=== PATIENT | female | born 1990 | race Native Hawaiian/Other Pacific Islander ===

== ENCOUNTER → 2019-05-28 09:03 | Outpatient (CLI) | payer OTHER, SELFPAY ==
--- NOTE | 2019-05-28 09:05 | DI.US.S_ITS ---
PROCEDURE: US OB >= 14 WEEKS FETUS INDICATIONS: 20 WEEK ANATOMY OUTSIDE/PRIOR DATING DATA: Last menstrual period (LMP): 01/01/19. LMP-based estimated date of delivery (ARA): 10/08/19. First dating scan (date and location): 02/17/19. Estimated date of delivery (ARA) from first dating scan: 10/06/19. TECHNIQUE: Real-time scanning was performed of the fetus, with image documentation and biometric measurements. Endovaginal scanning: No COMPARISON: [facility], , OB >= 14 WEEKS FETUS, 05/21/2019, 12:56. FINDINGS: General: A single living intrauterine gestation is present. Presentation: Vertex. Placenta: Placental position is posterior, without previa. Amniotic fluid index: 13.3 cm, normal range is 5-24 cm. heart rate: 136 beats per minute. Maternal cervical canal: 4.4 cm long. Normal lower limit is 2.5 cm. biometrics: Biparietal diameter: 20 weeks 6 days Head circumference: 20 weeks 6 days Abdominal circumference: 21 weeks 3 days Femur length: 21 weeks Estimated gestational age from initial scan: 21 weeks 2 days Composite gestational age from present scan: 21 weeks 1 day Estimated weight and percentile: 480 g; 41st percentile Measurement variability for biometric dating: +/- 7 days from 14 weeks to 15 weeks 6 days gestation, +/- 10 days from 16 weeks to 21 weeks 6 days gestation, +/- 2 weeks from 22 weeks to 27 weeks 6 days gestation, +/- 3 weeks for 28 weeks gestation or later. weight reference: 4500 g or EFW >90/95% is considered macrosomia or large for gestational age. EFW <10% is small for gestational age. EFW 5% or less is considered intra-uterine growth restriction. Anatomic survey: Neuro: Ventricles are non-dilated at less than 10 mm. Cisterna magna is normal at 3-11 mm. Cerebellum is normal in size and morphology. Nuchal skin fold: Normal at less than 6 mm between 14-21 weeks gestational age. Face: Nose and lips, facial profile are normal. Spine: No evidence for spina bifida. Heart: 4-chambered heart is present, with normal ventricular outflow tracts. Diaphragm: Diaphragm is intact. Stomach: Left-sided stomach is present. Kidneys: Right renal pelvis measures 7.0 mm; otherwise normal kidneys. Normal is less than 5 mm in 2nd trimester, less than 7 mm in 3rd trimester. Cord: 3-vessel cord has orthotopic insertion. Bladder: Normal in size. Extremities: All 4 extremities identified. IMPRESSION: 1. Single living IUP redemonstrated and interval growth is normal. 2. Right renal pelvis is dilated to 7.0 mm; otherwise normal anatomic survey. Short term followup ultrasound recommended. Dictated by: Nikos GILBERT Interpreted: Darien Slater MD on 05/28/2019 at 12:03 Approved by: Darien Slater M.D. on 05/31/2019 at 13:35
== END ==
PROVIDERS: Visit Provider Specialist
DX: Z34.82 Encounter for supervision of other normal pregnancy, second trimester (principal); Z3A.21 21 weeks gestation of pregnancy
CPT/HCPCS: 76811

== ENCOUNTER 2019-07-08 10:17 | Observation (INO) | payer OTHER, SELFPAY ==
[2019-07-08] MEDS: NIFEdipine 10 MG CAPSULE PO (10:56)
[2019-07-08] MEDS: LACTATED RINGERS 1,000 ML 1000 ML IV (11:47)
--- NOTE | 2019-07-08 13:17 | PM.OBTRLD ---
Visit Information Visit Information Date of evaluation: 07/08/19 Primary OB Provider: Laurie Gomez Reason for Evaluation: Yes pre-term labor Evaluation Evaluation Baseline heart rate: 140 Variability: Moderate (11-25) monitor accelerations: Present monitor decelerations: Absent Uterine Contraction Intensity: Mild Category of Tracing: I Comments: Patient with uterine irritability on the monitor. Patient received IV fluids and 1 dose of p.o. nifedipine. Patient thought her symptoms for markedly improved prior to discharge although still some irritability on the monitor. Diagnosis, Plan/Disposition Final Diagnosis (1) Premature uterine contractions: Current Visit: Yes Status: Acute Plan/Disposition Plan: Patient is to push fluids, work on prevent in constipation, return if her symptoms increase rather than decreased. OB Disposition: home
== END 2019-07-08 13:10 | disposition home or self-care (01) ==
PROVIDERS: Admitting Provider Specialist; Visit Provider Specialist
DX: O60.02 Preterm labor without delivery, second trimester (principal); Z3A.27 27 weeks gestation of pregnancy
CPT/HCPCS: 59025; 59050; 96360; G0378; G0379

== ENCOUNTER 2019-07-12 14:03 | Observation (INO) | payer OTHER, SELFPAY ==
[2019-07-12 15:14] LABS: Appearance Urine UA CLEAR; Bilirubin Urine UA NEGATIVE (NEGATIVE); Color Urine UA YELLOW; Glucose Urine UA NEGATIVE (Negative); Ketones Urine UA NEGATIVE (NEGATIVE); Leukocyte Esterase Urine UA NEGATIVE (NEGATIVE); Nitrite Urine UA NEGATIVE (Negative); Occult Blood Urine UA NEGATIVE (Negative); Protein Urine UA NEGATIVE (Negative); Urobilinogen Urine UA 0.2 E.U./dL (0.2)
[2019-07-12] MEDS: LACTATED RINGERS 1,000 ML 1000 ML IV (15:31)
[2019-07-12] MEDS: NIFEdipine 10 MG CAPSULE PO ×4 (15:31→17:22)
== END 2019-07-12 17:39 | disposition home or self-care (01) ==
PROVIDERS: Obstetrics & Gynecology; Admitting Provider Specialist; Visit Provider Specialist
DX: O60.02 Preterm labor without delivery, second trimester (principal); Z3A.27 27 weeks gestation of pregnancy
CPT/HCPCS: 59025; 59050; 81003; 96360; G0378; G0379

== ENCOUNTER → 2019-07-13 08:49 | Outpatient (CLI) | payer OTHER, SELFPAY ==
[2019-07-13 09:46] LABS: Fetal Fibronectin Negative
== END ==
PROVIDERS: Visit Provider Obstetrics & Gynecology
DX: O47.9 False labor, unspecified (principal); Z3A.28 28 weeks gestation of pregnancy
CPT/HCPCS: 82731

== ENCOUNTER 2019-09-01 14:10 | Inpatient (IN) | payer OTHER, SELFPAY ==
--- NOTE | 2019-09-01 | DI.US.S_ITS ---
PROCEDURE: US OB LIMITED INDICATIONS: PAIN; POSSIBLE ABRUPTION OR SEPARATION OUTSIDE/PRIOR DATING DATA: Last menstrual period (LMP): 01/01/19. LMP-based estimated date of delivery (ARA): 10/08/19. First dating scan (date and location): 02/17/19. Estimated date of delivery (ARA) from first dating scan: 10/06/19. TECHNIQUE: Real-time scanning was performed of the fetus, with image documentation and biometric measurements. Endovaginal scanning: Not performed COMPARISON: None. FINDINGS: General: A single living intrauterine gestation is present. Presentation: Vertex. Placenta: Placental position is left/fundal, without previa. Amniotic fluid index: 12.6 cm, normal range is 5-24 cm. heart rate: 178 beats per minute. Estimated gestational age from initial scan: 39 weeks 3 days . Other: No evidence of placental abruption. Severe right maternal hydronephrosis IMPRESSION: Single living intrauterine fetus in vertex presentation. No evidence of placental abruption. Severe right maternal hydronephrosis. Dictated by: Darien Slater M.D. on 09/01/2019 at 19:52 Approved by: Darien Slater M.D. on 09/01/2019 at 19:54
[2019-09-01 14:30] VITALS: BP 110/74
[2019-09-01] MEDS: NIFEdipine 10 MG CAPSULE PO ×4 (15:47→16:46)
[2019-09-01] MEDS: LACTATED RINGERS 1,000 ML 1000 ML IV (16:00)
[2019-09-01] MEDS: TERBUTALINE 1 MG/ML VIAL 0.25 MG SUBCUT (17:38)
[2019-09-01] MEDS: MAGNESIUM SULFATE 20 GM/500 ML IV.SOLN IV (18:38)
[2019-09-01 19:16] LABS: Add Manual Diff / Slide Review NO; Basophils Absolute Auto 0 /uL (0-100); Basophils Percent Auto 0.1 % (0-2); Eosinophils Absolute Auto 0 /uL (0-450); Eosinophils Percent Auto 0.4 % (2-4); Hematocrit 30.6 % (36-46); Hemoglobin 10.1 g/dL (12.0-16.0); Lymphocytes Absolute Auto 1700 /uL (1100-4500); Lymphocytes Percent Auto 21.1 % (25-40); Mean Corpuscular HGB Conc 32.9 % (30-36); Mean Corpuscular Hemoglobin 25.3 PG (26-34); Mean Corpuscular Volume 76.9 fL (80-100); Monocytes Absolute Auto 600 /uL (0-900); Monocytes Percent Auto 7.3 % (3-14); Neutrophils Absolute Auto 5800 /uL (1500-7000); Neutrophils Percent Auto 71.1 % (50-75); Platelet Count 159 X10^3/uL (150-400); Red Blood Cell Count 3.98 X10^6/uL (4.0-5.2); Red Cell Distribution Width 14.9 % (11.6-14.8); White Blood Cell Count 8.1 X10^3/uL (4.5-11.0)
[2019-09-01] MEDS: ONDANSETRON 4 MG/2 ML INJ IV (19:25)
[2019-09-01 19:27] LABS: Carbon Dioxide 22 mmol/L (22-32); Chloride 107 mmol/L (98-107); HEMOLYSIS < 15 (0-50); Sodium 135 mmol/L (137-145)
[2019-09-01 20:08] LABS: Strep Grp B PCR NEG for Grp B Strep
[2019-09-01] MEDS: MAGNESIUM SULFATE 2 GM/50 ML PIGGYBACK IV (20:10)
[2019-09-01] MEDS: POTASSIUM CHLORIDE 40 MEQ in SODIUM CHLORIDE 0.9% 500 ML 130 ML IV (20:34)
[2019-09-01 21:51] LABS: Appearance Urine UA CLEAR; Bilirubin Urine UA NEGATIVE (NEGATIVE); Color Urine UA YELLOW; Glucose Urine UA NEGATIVE (Negative); Ketones Urine UA 1+ (NEGATIVE); Leukocyte Esterase Urine UA 3+ (NEGATIVE); Nitrite Urine UA NEGATIVE (Negative); Occult Blood Urine UA NEGATIVE (Negative); Protein Urine UA NEGATIVE (Negative); Urobilinogen Urine UA 0.2 E.U./dL (0.2)
[2019-09-01 21:53] LABS: pH Urine UA 6.5 (4.5-8.0)
[2019-09-01 22:03] LABS: RBC Urine 0-1/HPF (0-5/HPF); Squamous Epithelial Cell Urine 0-1 /HPF (0-5/HPF); WBC Urine 10-30/HPF (0-5/HPF)
[2019-09-01 22:04] LABS: Bacteria Urine Moderate (10-30); Culture Indicated Urine Specimen Cultured
--- NOTE | 2019-09-01 22:50 | PM.OBHP.1 ---
OB HPI Date/Time Date of admission: 09/01/19 Date Patient Seen: 09/01/19 Time Patient Seen: 22:54 History of Present Condition Chief complaint: LABOR : 3 Para: 1 Estimated Date of Delivery: 10/06/19 Estimated Gestational Age (weeks): 35 Narrative: Xiomara Reardon is a 29 year old female who came in in labor and has continued to have contractions despite all efforts to stop them Indications Operative indications ( section): previous uterine surgery History of Present care: good care, initiated at week # (6), number of visits (11) and pounds weight gain (24) Dating criteria: LMP confirmed by 1st trimester US Ultrasounds: normal mid trimester US Obstetrical complications: labor Medical complications: none Preadmission Labs Blood type: O (+) positive -: Antibody screen: negative, GBS status: negative, HBsAG: negative, HIV: negative and RPR/VDLR: negative -: Chlamydia screen: not detected and Gonorrhea screen: not detected -: Rubella: immune PAP: Normal Prior (ies) History: 2011 15 weeks gestation spontaneous delivery at home 08/15/2016 40 week gestation 7 lb 10 oz for failure to progress Evaluation Evaluation Baseline heart rate: 120 Variability: Average (6-10) monitor accelerations: Present monitor decelerations: Absent Contraction Frequency (minutes): 3 Uterine Contraction Intensity: Moderate Category of Tracing: I Cervical dilation (cm): 0 Cervical effacement (%): 50 station: -3 Laboratory results: Laboratory Tests 09/01/19 09/01/19 09/01/19 18:38 19:08 19:08 WBC 8.1 RBC 3.98 L Hgb 10.1 L Hct 30.6 L MCV 76.9 L MCH 25.3 L MCHC 32.9 RDW 14.9 H Plt Count 159 Neut % (Auto) 71.1 Lymph % (Auto) 21.1 L [place] % (Auto) 7.3 Eos % (Auto) 0.4 L Baso % (Auto) 0.1 Neut # (Auto) 5800 Lymph # (Auto) 1700 [place] # (Auto) 600 Eos # (Auto) 0 Baso # (Auto) 0 Sodium 135 L Potassium 3.0 L Chloride 107 Carbon Dioxide 22 Magnesium Cancelled Urine Color Urine Appearance Urine pH Ur Specific [place] Urine Protein Urine Glucose (UA) Urine Ketones Urine Occult Blood Urine Nitrate Urine Bilirubin Urine Urobilinogen Ur Leukocyte Esterase Urine RBC Urine WBC Ur Squamous Epith Cells Urine Bacteria Ur Culture Indicated? Group B Strep (PCR) Neg for grp b strep 09/01/19 21:30 WBC RBC Hgb Hct MCV MCH MCHC RDW Plt Count Neut % (Auto) Lymph % (Auto) [place] % (Auto) Eos % (Auto) Baso % (Auto) Neut # (Auto) Lymph # (Auto) [place] # (Auto) Eos # (Auto) Baso # (Auto) Sodium Potassium Chloride Carbon Dioxide Magnesium Urine Color Yellow Urine Appearance Clear Urine pH 6.5 Ur Specific [place] 1.010 Urine Protein Negative Urine Glucose (UA) Negative Urine Ketones 1+ H Urine Occult Blood Negative Urine Nitrate Negative Urine Bilirubin Negative Urine Urobilinogen 0.2 Ur Leukocyte Esterase 3+ H Urine RBC 0-1/hpf Urine WBC 10-30/hpf H Ur Squamous Epith Cells 0-1 /hpf Urine Bacteria Moderate (10-30) H Ur Culture Indicated? Specimen cultured Group B Strep (PCR) [facility] Medical History (Updated 09/01/19 @ 23:01 by Laurie Gomez MD) ADHD (Acute) Asthma (Acute) Surgical History (Updated 08/13/19 @ 08:46 by Laurie Gomez MD) H/O: (Acute) Meds Home Medications and Allergies Home Medications Medication Instructions Recorded Confirmed Type nifedipine 30 mg tablet,extended 30 mg PO BID #30 tab 07/13/19 Rx release Double Electric Breast Pump #1 ea 08/30/19 08/30/19 Rx Allergies Allergy/AdvReac Type Severity Reaction Status Date / Time hydromorphone [From Dilaudid] AdvReac Severe Does not Verified 05/19/19 15:47 want it makes me feel very weird and out of it amoxicillin AdvReac Mild Hives Verified 05/19/19 15:47 Penicillins AdvReac Mild Hives Verified 05/19/19 15:47 Review of Systems Review of Systems Narrative: Patient complains of increasing abdominal pain and contractions. The pain is constant with the contractions increasing her pain. No headaches or scotomata. No vaginal bleeding. Good movement. No leakage of fluid. ROS Unobtainable: All systems reviewed & are unremarkable except as noted in HPI and below Exam Vital Signs (past 8 hours): Blood pressure 111/77, pulse of 116 Narrative Exam Narrative: HEENT exam within normal limits. Lungs are clear to auscultation percussion. Heart is regular rate and rhythm no S3-S4 or murmurs. Abdomen is soft with mild to moderate palpable contractions. Patient with tenderness throughout the abdomen including over the scar. Extremities without edema and nontender. Objective Labs Result Diagrams: 09/01/19 19:08 09/01/19 19:08 Labs: Laboratory Results - last 24 hr 09/01/19 09/01/19 09/01/19 18:38 19:08 19:08 WBC 8.1 RBC 3.98 L Hgb 10.1 L Hct 30.6 L MCV 76.9 L MCH 25.3 L MCHC 32.9 RDW 14.9 H Plt Count 159 Neut % (Auto) 71.1 Lymph % (Auto) 21.1 L [place] % (Auto) 7.3 Eos % (Auto) 0.4 L Baso % (Auto) 0.1 Neut # (Auto) 5800 Lymph # (Auto) 1700 [place] # (Auto) 600 Eos # (Auto) 0 Baso # (Auto) 0 Sodium 135 L Potassium 3.0 L Chloride 107 Carbon Dioxide 22 Magnesium Cancelled Urine Color Urine Appearance Urine pH Ur Specific [place] Urine Protein Urine Glucose (UA) Urine Ketones Urine Occult Blood Urine Nitrate Urine Bilirubin Urine Urobilinogen Ur Leukocyte Esterase Urine RBC Urine WBC Ur Squamous Epith Cells Urine Bacteria Ur Culture Indicated? Group B Strep (PCR) Neg for grp b strep 09/01/19 21:30 WBC RBC Hgb Hct MCV MCH MCHC RDW Plt Count Neut % (Auto) Lymph % (Auto) [place] % (Auto) Eos % (Auto) Baso % (Auto) Neut # (Auto) Lymph # (Auto) [place] # (Auto) Eos # (Auto) Baso # (Auto) Sodium Potassium Chloride Carbon Dioxide Magnesium Urine Color Yellow Urine Appearance Clear Urine pH 6.5 Ur Specific [place] 1.010 Urine Protein Negative Urine Glucose (UA) Negative Urine Ketones 1+ H Urine Occult Blood Negative Urine Nitrate Negative Urine Bilirubin Negative Urine Urobilinogen 0.2 Ur Leukocyte Esterase 3+ H Urine RBC 0-1/hpf Urine WBC 10-30/hpf H Ur Squamous Epith Cells 0-1 /hpf Urine Bacteria Moderate (10-30) H Ur Culture Indicated? Specimen cultured Group B Strep (PCR) Assessment and Plan Assessment and Plan Assessment and Plan narrative: 35 week gestation with prior with increasing contractions and change in cervix despite nifedipine, terbutaline, and IV magnesium sulfate. Decision was made to proceed with repeat section. Consent form was reviewed with patient. Risks of damage to internal organs, infection, bleeding requiring blood transfusion discussed with patient. Consent form was signed. Patient did wish to have a tubal ligation and she understands that she will no longer be able have children. 1 of 400 risk of after tubal ligation likely ectopic were discussed with the patient. Signs and symptoms of ectopic discussed.
[2019-09-01 22:58] LABS: Magnesium 4.6 mg/dL (1.6-2.3)
[2019-09-01] MEDS: CEFAZOLIN 2 GM/100 ML FROZ.PIGGY IV (23:26)
[2019-09-01] MEDS: ACETAMINOPHEN IV 1,000 MG/100 ML VIAL 400 MG IV (23:30)
--- NOTE | 2019-09-01 23:34 | SUR.OPER ---
Supine on Padded OR bed, head on pillow, safety belt at thigh, arms secured on padded arm boards at <90 degrees abduction. Bump under right buttock. Legs uncrossed with pillow under knees, gel pad to heels, tape over blanket to lower legs.
--- NOTE | 2019-09-01 23:45 | SUR.OPER ---
fht 125 S/P PLACEMENT OF SPINAL, VIABLE BABY BOY BORN AT 2347
[2019-09-01] MEDS: CARBOPROST 250 MCG/ML AMPUL IM ×2 (23:49→23:57)
--- NOTE | 2019-09-02 | PATH_ITS ---
[facility] Accession Number: [id number] . 01 Material submitted: . fallopian tube - PORTIONS OF BILATERAL FALLOPIAN TUBES . 02 Diagnosis: Portions of Bilateral Fallopian Tubes, Bilateral Tubal Ligation: Two segments of fallopian tube. One portion of fimbriated fallopian tube. No evidence of neoplasm. MRV 09/06/2019 1314 Local . 02 Electronically signed: . River Nguyen MD, PhD, Pathologist NPI- [id number] . 01 Gross description: . Received in formalin, labeled portions bilateral fallopian tubes, are two nonfimbriated fallopian tube segments (segment #1: length-2.7 cm, diameter-0.5 cm; segment #2: length-2.5 cm, diameter-0.5 cm) and a possible fimbria (1.4 x 0.9 x 0.3 cm). The serosa is matta smooth and shiny and the lumens are mtata and unremarkable. Section code: (A1) segment #1, software support representative serial sections; (A2) segment #2, software support representative serial sections; (A3) possible fimbria, bivalved, entirely submitted. ([id number]) /MRV 09/03/2019 1410 Local . 02 Microscopic: . Complete cross-sections of fallopian tube are seen from each submitted tubular structure. . 02 Pathologist provided ICD-10: Z30.2 . 02 CPT . 764548 Performed at: 01 [facility] [address] [place] [id number] MD Vazquez East MD Phone: [phone] Performed at: 02 [facility] [address] [place], [place] [id number] MD Jailyn Huddleston MD Phone: [phone]
[2019-09-02 00:27] VITALS: BP 101/67; PULSE 74; RESP 19; TEMP 36.7; O2SAT 99
[2019-09-02 00:31] VITALS: BP 105/78; PULSE 70; RESP 12; O2SAT 99
[2019-09-02 00:36] VITALS: BP 109/79; PULSE 75; RESP 11; O2SAT 99
--- NOTE | 2019-09-02 00:40 | PM.OP.1 ---
Operative Date/Time/Diagnoses Date of procedure: 09/02/19 Time of procedure: 00:40 Pre-op diagnosis: 35 week gestation with prior section in active labor and undesired fertility Post-op diagnosis: same Procedure & Clinicians Procedure: Repeat low-transverse section with bilateral tubal ligation Same procedure as scheduled: Yes Indications: 35 week gestation with prior section in active labor and undesired fertility Surgeon: Laurie Gomez Director [employer]: Kelli Last Click Yes if Unassisted: No Anesthesia Type: Spinal Operative Notes Findings: Normal tubes, ovaries, and uterus. Viable male . Closure Type: primary Specimen(s): other (Bilateral segments of fallopian tubes) Applied: catheter Estimated Blood Loss (mL): 500 Blood products transfused: none Procedure in detail: The patient was brought to the operating room where she underwent a spinal for anesthesia. She was placed in a supine position with a left lateral tilt. A Yuan catheter was placed. Pulsatile stockings were placed and functional throughout the case. 2 g of Ancef were given IV prior to the incision. Warming was in place. The patient was prepped and draped in usual sterile fashion. A low transverse incision was made with a scalpel and the incision was carried down to the fascial layer which was incised transversely with scissors. The midline attachments are superiorly and inferiorly. Some bleeding was controlled Bovie. The rectus muscles were in the midline and the peritoneal incision was made with no damage to internal structures. The peritoneum was incised and superiorly and inferiorly. Bladder blade was placed and a bladder flap was developed and the bladder held away from the lower uterine segment. An incision was made in the uterus with the scalpel and the incision was extended with stretching. The head was elevated out of the abdomen with assistance from a vacuum and with fundal pressure the baby was delivered. The infant was bulb suctioned for clear fluid and handed off to the warmer. Cord blood was collected. The placenta delivered spontaneously with traction. The uterus was cleaned with clean laps. Due to the bleeding the patient was given IV Pitocin, IM Methergine, and intrauterine muscle injection of Hemabate. The uterine incision was closed in 2 layers of 0 chromic suture the first a running locking layer the second an imbricating layer. The bladder peritoneum was repaired with 2-0 Polysorb suture. The gutters were cleaned of any remaining fluid. The right fallopian tube was grasped with the Jennifer and a segment of the tube tied off x2 with 0 plain suture. The intervening section was removed. Same procedure was performed on the opposite side. Adequate hemostasis was noted. The perineum was closed with 2-0 Polysorb suture. The fascia layer was closed with 0 Polysorb suture with 2 stitches. The incision was irrigated and adequate hemostasis noted. The incision was closed with interrupted 3-0 Polysorb sutures and then a subcuticular stitch of 4-0 Polysorb suture. Steri-Strips were placed. The uterus was massaged to remove any clots. The patient went to recovery room in good condition. Counts of instruments and sponges were correct. Complications: none Post-operative Condition: stable Disposition: other ( Center) Plan for aftercare: Routine post section
[2019-09-02 00:42] VITALS: BP 114/78; PULSE 72; RESP 11; O2SAT 99
[2019-09-02 00:57] VITALS: BP 102/77; PULSE 74; RESP 10; TEMP 36.6; O2SAT 100
--- NOTE | 2019-09-02 01:59 | SUR.PHASEI ---
Late entry: stable pacu stay, report given to Marianne when she arrived to unit, pt left in stable condition.
[2019-09-02] MEDS: OXYCODONE/ACETAMINOPHEN 5/325 TABLET 1 TAB PO ×3 (03:29→13:16)
[2019-09-02] MEDS: KETOROLAC 30 MG/ML VIAL IV ×2 (07:14→13:17)
[2019-09-02 11:25] LABS: Hematocrit 26.5 % (36-46); Hemoglobin 8.9 g/dL (12.0-16.0)
--- NOTE | 2019-09-02 12:35 | P.DS_ITS ---
Discharge Providers Provider Date of admission: 09/01/19 14:10 Discharge Date: 09/02/19 Consults: 09/02/19 00:33 Consult to Senior Sales Administrator Routine Comment: Discharge provider: Laurie Gomez MD Summary Hospital Course Date Patient Seen: 09/02/19 Time Patient Seen: 12:36 Procedures: IV tocolytics, repeat low-transverse section with bilateral tubal ligation Hospital Course: Patient arrived at the hospital at 35 weeks in labor. Attempts to stop labor were unsuccessful and decision was made to proceed with repeat low-transverse section. Patient requested tubal ligation. The infant had respiratory distress after so was transported to [facility] in [place] and is apparently stable. Mother is ambulatory. Is urinating post removal of the Yuan catheter. Peripartum Data Infant Delivery Method: Section complications: none 1: Gender: Male Disposition of : NICU Discharge Diagnosis (1) H/O: : Status: Acute (2) Delivery by section: Status: Acute (3) Acute blood loss anemia: Status: Acute (4) 35 weeks gestation of : Status: Acute Status at Discharge Cognitive/behavioral status at discharge: oriented Functional status at discharge: independent ambulation Overall status at discharge: patient is progressing back to baseline Time Spent with Patient Time attestation: Total time spent providing and/or coordinating discharge services: Time spent: Less than 30 minutes Objective Labs Result Diagrams: 09/02/19 11:11 09/01/19 19:08 Labs: Laboratory Results - last 24 hr 09/01/19 09/01/19 09/01/19 18:38 19:08 19:08 WBC 8.1 RBC 3.98 L Hgb 10.1 L Hct 30.6 L MCV 76.9 L MCH 25.3 L MCHC 32.9 RDW 14.9 H Plt Count 159 Neut % (Auto) 71.1 Lymph % (Auto) 21.1 L [place] % (Auto) 7.3 Eos % (Auto) 0.4 L Baso % (Auto) 0.1 Neut # (Auto) 5800 Lymph # (Auto) 1700 [place] # (Auto) 600 Eos # (Auto) 0 Baso # (Auto) 0 Sodium 135 L Potassium 3.0 L Chloride 107 Carbon Dioxide 22 Magnesium Cancelled Urine Color Urine Appearance Urine pH Ur Specific [place] Urine Protein Urine Glucose (UA) Urine Ketones Urine Occult Blood Urine Nitrate Urine Bilirubin Urine Urobilinogen Ur Leukocyte Esterase Urine RBC Urine WBC Ur Squamous Epith Cells Urine Bacteria Ur Culture Indicated? Group B Strep (PCR) Neg for grp b strep Blood Type Antibody Screen 09/01/19 09/01/19 09/01/19 21:30 22:25 22:25 WBC RBC Hgb Hct MCV MCH MCHC RDW Plt Count Neut % (Auto) Lymph % (Auto) [place] % (Auto) Eos % (Auto) Baso % (Auto) Neut # (Auto) Lymph # (Auto) [place] # (Auto) Eos # (Auto) Baso # (Auto) Sodium Potassium Chloride Carbon Dioxide Magnesium 4.6 H Urine Color Yellow Urine Appearance Clear Urine pH 6.5 Ur Specific [place] 1.010 Urine Protein Negative Urine Glucose (UA) Negative Urine Ketones 1+ H Urine Occult Blood Negative Urine Nitrate Negative Urine Bilirubin Negative Urine Urobilinogen 0.2 Ur Leukocyte Esterase 3+ H Urine RBC 0-1/hpf Urine WBC 10-30/hpf H Ur Squamous Epith Cells 0-1 /hpf Urine Bacteria Moderate (10-30) H Ur Culture Indicated? Specimen cultured Group B Strep (PCR) Blood Type O Positive Antibody Screen Negative 09/02/19 11:11 WBC RBC Hgb 8.9 L Hct 26.5 L MCV MCH MCHC RDW Plt Count Neut % (Auto) Lymph % (Auto) [place] % (Auto) Eos % (Auto) Baso % (Auto) Neut # (Auto) Lymph # (Auto) [place] # (Auto) Eos # (Auto) Baso # (Auto) Sodium Potassium Chloride Carbon Dioxide Magnesium Urine Color Urine Appearance Urine pH Ur Specific [place] Urine Protein Urine Glucose (UA) Urine Ketones Urine Occult Blood Urine Nitrate Urine Bilirubin Urine Urobilinogen Ur Leukocyte Esterase Urine RBC Urine WBC Ur Squamous Epith Cells Urine Bacteria Ur Culture Indicated? Group B Strep (PCR) Blood Type Antibody Screen Exam Vital Signs (past 8 hours): Blood pressure 100/61, pulse 64, temperature 37.1? Oxygen Delivery Method Room Air Narrative Exam Narrative: Patient's abdomen is soft, nontender. Uterus is firm, U -1, appropriately tender. Dressing is dry. Mild lochia. Extremities without edema and nontender. Patient's blood type is O-positive she is rubella immune and received the Tdap in the 3rd trimester Discharge Plan Discharge Plan Patient Disposition: Home Discharge Med Rec/Prescriptions Prescriptions: New oxycodone-acetaminophen 5-325 mg Tablet 1 tab PO Q4HR PRN (Reason: Pain, Moderate (4-6)) Qty: 30 RF: 0 docusate sodium 250 mg Capsule 250 mg PO DAILY Qty: 20 RF: 0 ibuprofen 600 mg tablet 600 mg PO Q6H PRN (Reason: pain) Qty: 30 RF: 0 ferrous gluconate 324 mg (38 mg iron) tablet 324 mg PO BID Qty: 60 RF: 0 Continued (DME) Double Electric Breast Pump Qty: 1 RF: 0 Discontinued nifedipine 30 mg tablet extended release 30 mg PO BID Qty: 30 RF: 4 Follow up/Referrals: Laurie Gomez MD [Physician] - 1 Week (1 week incision check, 4 weeks exam if you are down at [facility] go to labor and delivery too see if someone can remove the dressing) Provider Discharge Instructions Diet: Regular Activity: nothing in vagina for 4 weeks, do not lift over 20 pounds for 6 weeks Skin/Wound/Dressing Care Report to your healthcare provider any signs of infection, such as:: chills, fever, increased pain and unusual redness Dressing: leave dressing in place until your 1 week check Visit Report/Discharge Packet Stand Alone Forms: Discharge: Care
[2019-09-02 13:22] VITALS: BP 104/61; PULSE 63; RESP 12; TEMP 36.5
== END 2019-09-02 15:00 | disposition home or self-care (01) | DRG 784 ==
PROVIDERS: Admitting Provider Specialist; Visit Provider Specialist
PROC: 10D00Z1 Extraction of Products of Conception, Low, Open Approach (ICD-10-PCS; CPT 59514; principal; 2019-09-01 11:00)
DX: O60.14X0 Preterm labor third trimester with preterm delivery third trimester, not applicable or unspecified (principal); D62 Acute posthemorrhagic anemia; O34.219 Maternal care for unspecified type scar from previous cesarean delivery; Z3A.35 35 weeks gestation of pregnancy; Z37.0 Single live birth; Z30.2 Encounter for sterilization
CPT/HCPCS: 36415; 58611; 59050; 59515; 76815; 80051; 81003; 81015; 83735; 85014; 85018; 85025; 86850; 86900; 86901; 87077; 87086; 87653; G0379; J0131; J0690; J1885; J2274; J2405; J2590; J2704; J3010; J3475; J3480